=== PATIENT | female | born 1985 | race Caucasian/White ===

== ENCOUNTER 2023-11-05 12:52 | Inpatient (IN) | payer OTHER ==
[2023-11-05 14:37] VITALS: BMI 18.3
[2023-11-05] MEDS ORDERED: BENZOCAINE/MENTHOL (CHLORASEPTIC ) LOZENGE MM PRN (15:18)
[2023-11-05] MEDS ORDERED: NALOXONE HCL 0.4 MG/ML VIAL IM PRN (15:18)
[2023-11-05] MEDS ORDERED: IBUPROFEN 400 MG TABLET (FP) PO PRN (15:18)
[2023-11-05] MEDS ORDERED: guaiFENesin 600 MG TABLET.ER (FP) PO PRN (15:18)
[2023-11-05] MEDS ORDERED: ACETAMINOPHEN 325 MG TABLET (FP) PO PRN (15:18)
[2023-11-05] MEDS ORDERED: MAG HYDROX/AL HYDROX/SIMETH 30 ML UNIT-DOSE CUP PO PRN (15:18)
[2023-11-05] MEDS ORDERED: BENZONATATE 200 MG CAPSULE PO PRN (15:18)
[2023-11-05] MEDS ORDERED: BUPRENORPHINE HCL 150 MCG, BUPRENORPHINE HCL 75 MCG BC PRN (15:18)
[2023-11-05] MEDS ORDERED: MAGNESIUM HYDROX 2400MG/30ML ORAL SUSPENSION 30 ML CUP PO PRN (15:18)
[2023-11-05] MEDS ORDERED: POLYETHYLENE GLYCOL (HEALTHYLAX) 3350 17 GM PACKET PO PRN (15:18)
[2023-11-05] MEDS ORDERED: ONDANSETRON *ODT* 4 MG TABLET SL PRN (15:18)
[2023-11-05] MEDS ORDERED: DICYCLOMINE HCL 10 MG CAPSULE PO PRN (15:18)
[2023-11-05] MEDS ORDERED: NALOXONE HCL (KLOXXADO) 8 MG SPRAY NS PRN (15:18)
[2023-11-05] MEDS ORDERED: BISMUTH SUBSALICYLATE 524 MG/30 ML PO PRN (15:18)
[2023-11-05] MEDS ORDERED: BUPRENORPHINE HCL 150 MCG FILM BC ONE (16:44)
[2023-11-05] MEDS ORDERED: BUPRENORPHINE HCL 75 MCG FILM BC ONE (16:45)
[2023-11-05] MEDS ORDERED: cloNIDine HCL 0.1 MG TABLET ONE (16:45)
[2023-11-05] MEDS: BUPRENORPHINE HCL 150 MCG, BUPRENORPHINE HCL 75 MCG BC ONE (16:58)
[2023-11-05] MEDS: cloNIDine HCL 0.1 MG TABLET PO ONE (17:00)
[2023-11-05] MEDS: PRENATAL VITAMINS W/ FOLIC ACID TABLET (FP) PO SCH (22:41)
[2023-11-05] MEDS: NICOTINE 14 MG/24 HOURS TOPICAL PATCH TD SCH (22:41)
[2023-11-05] MEDS: METHOCARBAMOL 500 MG TABLET PO PRN (22:43)
[2023-11-05] MEDS: diazePAM 5 MG TABLET PO PRN (22:44)
[2023-11-05] MEDS: MELATONIN 5 MG TABLETS PO SCH (22:47)
[2023-11-05] MEDS: THIAMINE HCL 100 MG TABLET (FP) PO SCH (22:48)
[2023-11-06] MEDS ORDERED: BUPRENORPHINE HCL 150 MCG, BUPRENORPHINE HCL 75 MCG BC PRN
[2023-11-06] MEDS: BUPRENORPHINE HCL 150 MCG, BUPRENORPHINE HCL 75 MCG BC SCH (06:13)
[2023-11-06 11:04] LABS: HEMATOCRIT 42.4 % (32.4-45.2); MCH 30.3 pg (25.7-33.7); MEAN CELL VOLUME 91.9 fl (80-96); MEAN PLT VOLUME 7.4 fl (7.5-11.1); PLATELET COUNT 297 10^3/uL (134-434); RBC 4.62 M/mm3 (3.60-5.2); RDW 13.5 % (11.6-15.6); WHITE BLOOD COUNT 6.1 K/mm3 (4.0-10.0)
[2023-11-06 11:10] LABS: CHLORIDE 109 mmol/L (98-107); POTASSIUM 4.1 mmol/L (3.5-5.1); SODIUM 141 mmol/L (136-145)
[2023-11-06 11:14] LABS: ANION GAP 6 mmol/L (4-13); BLOOD UREA NITROGEN 7.9 mg/dL (7-18); CALCIUM 8.9 mg/dL (8.5-10.1); CO2 26 mmol/L (21-32)
[2023-11-06 11:15] LABS: ALBUMIN 3.3 g/dl (3.4-5.0); GLUCOSE,RANDOM 96 mg/dL (74-106)
[2023-11-06 11:18] LABS: CREATININE 0.5 mg/dL (0.55-1.3); SGOT/AST 116 U/L (15-37); SGPT/ALT 161 U/L (13-61)
[2023-11-06 11:19] LABS: BILIRUBIN,TOTAL 0.3 mg/dL (0.2-1); TOT PROT 6.3 g/dl (6.4-8.2)
[2023-11-06 11:20] LABS: ALK PHOS 68 U/L (45-117)
[2023-11-06] MEDS: BUPRENORPHINE HCL 150 MCG, BUPRENORPHINE HCL 75 MCG BC ONE (13:27)
[2023-11-06] MEDS: cloNIDine HCL 0.1 MG TABLET PO PRN (17:53)
[2023-11-07] MEDS: BUPRENORPHINE HCL 450 MCG FILM BC SCH (06:22)
[2023-11-07] MEDS ORDERED: ALBUTEROL SO4 0.083% IH SOL 2.5 MG/3 ML VIAL.NEB. NEB PRN (08:55)
[2023-11-07] MEDS: LOPERAMIDE HCL 2 MG CAPSULE PO PRN (08:58)
[2023-11-07 13:06] VITALS: RESP 16
[2023-11-07] MEDS: ALBUTEROL SO4 HFA INHALER IH PRN (15:53)
[2023-11-07] MEDS: IBUPROFEN 600 MG TABLET (FP) PO PRN (20:20)
[2023-11-07] MEDS: hydrOXYzine PAMOATE 25 MG CAPSULE (FP) PO PRN (22:36)
[2023-11-08] MEDS: BUPRENORPHINE/NALOXONE 4 MG/1 MG FILM PACKET SL SCH (05:14)
[2023-11-08 06:01] VITALS: BP 133/88; PULSE 87; TEMP 97.6
[2023-11-09] MEDS ORDERED: BUPRENORPHINE/NALOXONE 8 MG/2 MG FILM PACKET SL ONE (06:00)
== END 2023-11-08 08:15 | disposition other institution (70) | DRG 773 ==
LOC: YASAS 12:52 → Y6N 15:39
PROVIDERS: ADMIT Allergy & Immunology; ATTEND Surgery
PROC: HZ2ZZZZ Detoxification Services for Substance Abuse Treatment (ICD-10-PCS; principal; 2023-11-05)
DX: F11.23 Opioid dependence with withdrawal (principal); F14.10 Cocaine abuse, uncomplicated; F12.10 Cannabis abuse, uncomplicated; F17.210 Nicotine dependence, cigarettes, uncomplicated; R74.01 Elevation of levels of liver transaminase levels; Z59.00 Homelessness unspecified
CPT/HCPCS: 36415; 80053; 80307; 81025; 85027; 86780; 87635; 87811; 93005; 93010